=== PATIENT | female | born 1975 | race Caucasian/White ===

== ENCOUNTER 2019-09-26 12:47 | Emergency (ER) | payer OTHER ==
[~2019-09-26] VITALS: Ht 149.9 cm; Wt 63.5 kg
[2019-09-26] MEDS ORDERED: DICLOFENAC SODI75 MG PO (19:03)
== END 2019-09-26 19:52 | disposition home or self-care (01) ==
LOC: ER 12:47
DX: S00.83XA Contusion of other part of head, initial encounter (principal); W18.39XA Other fall on same level, initial encounter; Y93.89 Activity, other specified; Y92.89 Other specified places as the place of occurrence of the external cause; Y99.8 Other external cause status